=== PATIENT | female | born 1965 | race Caucasian/White ===

== ENCOUNTER 2025-07-04 13:06 | Outpatient (CLI) | payer MEDICAID ==
--- NOTE | 2025-07-04 15:19 | RADIOLOGY REPORT ---
EXAM: MR MRI LUMBAR SPINE CLINICAL HISTORY: SPINAL STENOSIS, LUMBAR REGION WITHOUT NEUROGENIC COMPARISON: None TECHNIQUE: MRI imaging of the lumbar was performed on a MRI imaging system without intravenous contrast. FINDINGS GENERAL Multilevel disc degeneration. Alignment: Grade 2 retrolisthesis of L5 on S1. Vertebrae: Moderate compression deformity of the L4 vertebral body with 34% height loss. Conus: Conus medullaris terminates at the L1 level. T12-L1: The disc configuration is normal. No spinal canal or neural foraminal stenosis. Facet arthrosis. L1-2: Disc desiccation. No spinal canal or neural foraminal stenosis. Facet arthrosis. L2-3: Disc desiccation and disc bulge. No spinal canal or neural foraminal stenosis. Facet arthrosis. L3-4: Disc desiccation and disc bulge. Mild spinal canal stenosis. Mild left foraminal stenosis. Facet arthrosis. L4-5: Disc desiccation. Moderate disc height loss. Disc bulge with superimposed right foraminal disc protrusion. Severe spinal canal stenosis. Bilateral subarticular zone stenosis with bilateral descending L5 nerve root compression. Severe bilateral foraminal stenosis with potential bilateral exiting L4 nerve root compression. Facet arthrosis. L5-S1: Grade 2 retrolisthesis of L5 on S1 by 3.6 mm. Disc desiccation and disc bulge. Moderate disc height loss. No spinal canal stenosis. Moderate left and severe right foraminal stenosis with potential right exiting L5 nerve root compression. Facet arthrosis. Modic type 2 changes at L4-L5. IMPRESSION: 1. Multilevel disc degeneration. Moderate compression deformity of L4 with 34% height loss. Multilevel spinal canal stenosis, most pronounced and severe at L4- L5. Multilevel foraminal stenosis, most pronounced and severe at L4-L5 with potential bilateral exiting L4 nerve root compression. Bilateral subarticular zone stenosis at L4-L5 level with bilateral descending L5 nerve root compression.
== END 2025-07-04 23:59 | disposition home or self-care (01) ==
LOC: MRI02 13:06
PROVIDERS: ATTEND Family Medicine
DX: M51.17 Intervertebral disc disorders with radiculopathy, lumbosacral region (principal); M48.061 Spinal stenosis, lumbar region without neurogenic claudication; M47.817 Spondylosis without myelopathy or radiculopathy, lumbosacral region; M48.07 Spinal stenosis, lumbosacral region; M43.8X7 Other specified deforming dorsopathies, lumbosacral region; M47.27 Other spondylosis with radiculopathy, lumbosacral region
CPT/HCPCS: 72148